=== PATIENT | female | born 1980 | race Asian ===

== ENCOUNTER 2023-08-20 13:03 | Emergency (ER) | payer MEDICAID ==
[~2023-08-20] VITALS: Ht 165.1 cm; Wt 59.0 kg
[2023-08-20 13:15] VITALS: BP 97/61; PULSE 131; RESP 20; TEMP 97.8; O2SAT 99
[2023-08-20] MEDS ORDERED: NACL 0.9% 1,000 ML IV ONE (14:10)
[2023-08-20] MEDS ORDERED: KETOROLAC 30 MG/ML VIAL IVP ONE (14:10)
[2023-08-20] MEDS ORDERED: MORPHINE SULFATE 4 MG/ML SYR IVP ONE (14:10)
[2023-08-20] MEDS ORDERED: ACET-503 PO (15:12)
[2023-08-20] MEDS ORDERED: IBUP-2213 PO (15:12)
[2023-08-20 15:26] VITALS: BP 119/59; PULSE 98; RESP 21; TEMP 98.2; O2SAT 99
== END 2023-08-20 15:28 | disposition home or self-care (01) ==
LOC: MED 13:03
DX: S80.12XA Contusion of left lower leg, initial encounter (principal); M54.50 Low back pain, unspecified; M53.3 Sacrococcygeal disorders, not elsewhere classified; E11.9 Type 2 diabetes mellitus without complications; I10 Essential (primary) hypertension; F17.200 Nicotine dependence, unspecified, uncomplicated; W01.198A Fall on same level from slipping, tripping and stumbling with subsequent striking against other object, initial encounter; Y92.89 Other specified places as the place of occurrence of the external cause; Y93.89 Activity, other specified; Y99.8 Other external cause status
CPT/HCPCS: 72100; 72220; 73590; 82948; 96361; 96374; 99284; J2270; J7030